=== PATIENT | female | born 1995 | race Caucasian/White ===

== ENCOUNTER 2016-12-10 02:16 | Emergency (ER) | payer OTHER ==
[~2016-12-10] VITALS: Ht 160 cm; Wt 78.0 kg
[2016-12-10 04:01] VITALS: BP 129/74
== END 2016-12-10 04:01 | disposition home or self-care (01) ==
LOC: ED 02:16
DX: T63.301A Toxic effect of unspecified spider venom, accidental (unintentional), initial encounter (principal); Y92.89 Other specified places as the place of occurrence of the external cause
CPT/HCPCS: 90715

== ENCOUNTER 2017-08-15 01:13 | Emergency (ER) | payer OTHER ==
[~2017-08-15] VITALS: Ht 162.6 cm; Wt 74.8 kg
[2017-08-15 01:18] VITALS: Ht 162.6 cm; Wt 74.8 kg
[2017-08-15 01:48] VITALS: BP 139/63
== END 2017-08-15 01:48 | disposition home or self-care (01) ==
LOC: ED 01:13
DX: T15.12XA Foreign body in conjunctival sac, left eye, initial encounter (principal); X58.XXXA Exposure to other specified factors, initial encounter; Y93.89 Activity, other specified; Y92.89 Other specified places as the place of occurrence of the external cause; Y99.8 Other external cause status